=== PATIENT | male | born 1965 | race Caucasian/White ===

== ENCOUNTER 2016-10-09 22:37 | Emergency (ER) | payer SELFPAY ==
[~2016-10-09] VITALS: Ht 177.8 cm; Wt 102.0 kg
[~2016-10-09 22:37] MED LIST: Z.0.NO CURRENT MEDS
[2016-10-09 22:39] VITALS: BP 167/90; PULSE 83; RESP 16; TEMP 97.8; O2SAT 97
[2016-10-09] MEDS ORDERED: SODIUM CHLORIDE 0.9% FLUSH 10 ML FLUSH IV FLUSH PRN (23:15)
[2016-10-09 23:37] LABS: AUTOMATED NEUTROPHIL # 6.7 TH/MM3 (1.8-7.7); BASOPHIL # 0.1 TH/MM3 (0-0.2); EOSINOPHIL # 0.4 TH/MM3 (0-0.4); EOSINOPHIL % 3.8 % (0.0-4.0); HEMATOCRIT 42.7 % (39.0-51.0); HEMO FLAGS DIFF FINAL; LYMPH % 19.1 % (9.0-44.0); LYMPHOCYTE # 1.9 TH/MM3 (1.0-4.8); MEAN CELL VOLUME 88.9 FL (80.0-100.0); MEAN CORPUSCULAR HEMOGLOBIN 30.8 PG (27.0-34.0); MEAN CORPUSCULAR HGB CONC 34.7 % (32.0-36.0); MONO % 7.6 % (0.0-8.0); NEUT % 68.5 % (16.0-70.0); PLATELET COUNT 177 TH/MM3 (150-450); RED CELL DISTRIBUTION WIDTH 13.1 % (11.6-17.2); WHITE BLOOD COUNT 9.7 TH/MM3 (4.0-11.0)
[2016-10-09 23:58] LABS: ALKALINE PHOSPHATASE 57 U/L (45-117); ALT (GPT) 35 U/L (12-78); ANION GAP 7 MEQ/L (5-15); AST (GOT) 21 U/L (15-37); BICARBONATE 29.6 MEQ/L (21.0-32.0); BLOOD UREA NITROGEN 13 MG/DL (7-18); CHLORIDE 101 MEQ/L (98-107); GLOMERULAR FILTRATION RATE 70 ML/MIN (>89); SODIUM (NA) 138 MEQ/L (136-145); TOTAL BILIRUBIN ADULT 0.2 MG/DL (0.2-1.0)
[2016-10-10] MEDS ORDERED: BENT20TA PO (00:43)
[2016-10-10] MEDS ORDERED: MIRA33504 PO (00:43)
--- NOTE | 2016-10-10 00:44 | PD ---
HPI Chief Complaint: GI Complaint Time Seen by Provider: 23:05 Travel History International Travel<30 days: No Contact w/Intl Traveler<30days: No Traveled to known affect area: No History of Present Illness HPI This is a 51 year old male who presents to the emergency department with abdominal discomfort. Pt. reports that for one day he has had significant abdominal bloating, constant, moderate severity, associated with constipation. He reports every time he eats he feels bloated. He denies any nausea or vomiting. He reports he took a laxative earlier this week and he had a large bowel movement. He's been having bowel movements every day but he was worried he may have a blockage. He does have a history of diverticulitis and has some chronic left-sided abdominal pain but this is not worse than normal. He usually takes acidophilus but had become somewhat slack in taking this and he thinks that may be contributing to his symptoms. PFSH Past Medical History Hx Anticoagulant Therapy: No Heart Rhythm Problems: No Cardiac Catheterization: No Cardiovascular Problems: No High Cholesterol: No Chemotherapy: No Congestive Heart Failure: No Cerebrovascular Accident: No Diabetes: No Diminished Hearing: No Diverticulitis: Yes Respiratory: No Immunizations Current: Yes Past Surgical History Coronary Artery Bypass Graft: No Social History Alcohol Use: Yes (OCC) Tobacco Use: No Substance Use: Yes (marijuana) Allergies-Medications (Allergen,Severity, Reaction): Coded Allergies: No Known Allergies (Verified , 10/09/16) Reported Meds & Prescriptions Reported Meds & Active Scripts Active No Active Prescriptions or Reported Medications Review of Systems Except as stated in HPI: all other systems reviewed are Neg Physical Exam Narrative GENERAL:Well appearing, no acute distress SKIN: Focused skin assessment warm and dry. HEAD: Atraumatic. Normocephalic. EYES: Pupils equal and round. No injection or drainage. ENT: Moist mucous membranes NECK: Trachea midline. CARDIOVASCULAR: Regular rate and rhythm. No murmur appreciated. RESPIRATORY: Clear to auscultation. Breath sounds equal bilaterally. GASTROINTESTINAL: Abdomen soft, non-tender, nondistended. Bowel sounds in all four quadrants MUSCULOSKELETAL: No obvious deformities. NEUROLOGICAL: Awake and alert. No obvious cranial nerve deficits. Moving all extremities. Data Data Last Documented VS Vital Signs Date Time Temp Pulse Resp B/P Pulse Ox O2 Delivery O2 Flow Rate FiO2 10/09/16 22:39 97.8 83 16 167/90 97 Room Air Orders Complete Blood Count With Diff (10/09/16 23:11) Comprehensive Metabolic Panel (10/09/16 23:11) Lipase (10/09/16 23:11) Iv Access Insert/Monitor (10/09/16 23:11) Ecg Monitoring (10/09/16 23:11) Oximetry (10/09/16 23:11) Sodium Chloride 0.9% Flush (Ns Flush) (10/09/16 23:15) Labs Laboratory Tests Test 10/09/16 23:23 White Blood Count 9.7 TH/MM3 Red Blood Count 4.80 MIL/MM3 Hemoglobin 14.8 GM/DL Hematocrit 42.7 % Mean Corpuscular Volume 88.9 FL Mean Corpuscular Hemoglobin 30.8 PG Mean Corpuscular Hemoglobin 34.7 % Concent Red Cell Distribution Width 13.1 % Platelet Count 177 TH/MM3 Mean Platelet Volume 10.4 FL Neutrophils (%) (Auto) 68.5 % Lymphocytes (%) (Auto) 19.1 % Monocytes (%) (Auto) 7.6 % Eosinophils (%) (Auto) 3.8 % Basophils (%) (Auto) 1.0 % Neutrophils # (Auto) 6.7 TH/MM3 Lymphocytes # (Auto) 1.9 TH/MM3 Monocytes # (Auto) 0.7 TH/MM3 Eosinophils # (Auto) 0.4 TH/MM3 Basophils # (Auto) 0.1 TH/MM3 CBC Comment DIFF FINAL Differential Comment Sodium Level 138 MEQ/L Potassium Level 4.0 MEQ/L Chloride Level 101 MEQ/L Carbon Dioxide Level 29.6 MEQ/L Anion Gap 7 MEQ/L Blood Urea Nitrogen 13 MG/DL Creatinine 1.11 MG/DL Estimat Glomerular Filtration 70 ML/MIN Rate Random Glucose 108 MG/DL Calcium Level 8.8 MG/DL Total Bilirubin 0.2 MG/DL Aspartate Amino Transf 21 U/L (AST/SGOT) Alanine Aminotransferase 35 U/L (ALT/SGPT) Alkaline Phosphatase 57 U/L Total Protein 7.6 GM/DL Albumin 3.9 GM/DL Lipase 135 U/L [facility] Medical Decision Making Medical Screen Exam Complete: Yes Emergency Medical Condition: Yes Interpretation(s) no leukocytosis electrolytes are reassuring lipase is normal Differential Diagnosis Diverticulitis, small bowel obstruction, irritable bowel syndrome, constipation Narrative Course This is a very well-appearing 51-year-old male who presents to the emergency department with abdominal bloating. He was concerned he may have a blockage. He's been having normal bowel movements, no vomiting, and has a benign abdomen which is nontender. Labs are reassuring. I don't think he requires CT imaging. Patient will be discharged on Bentyl, a laxative and was given a referral for a range ecologist. Diagnosis Primary Impression: Abdominal bloating Referrals: Rommel Mancia MD Patient Instructions: General Instructions Additional Instructions: If you develop severe or worsening abdominal pain, fever>100.4, persistent vomiting or inability to eat or drink return to the emergency department immediately. Follow up with your primary care physician in 1-2 days for a check-up. Med/Other Pt SpecificInfo: Prescription(s) given Scripts Polyethylene Glycol 3350 Powder (Miralax Powder)17 Gm Powd17 Gm PO DAILY #1 BOTTLE Ref 0 Mix and dissolve one measuring cap-ful (17 grams) in water or juice. Prov:Amna Otero MD 10/10/16 Dicyclomine (Bentyl)20 Mg Tab20 Mg PO QID PRN (CRAMPS) #20 TAB Prov:Amna Otero MD 10/10/16 Disposition: 01 DISCHARGE HOME Condition: Stable Amna Otero MD Oct 10, 2016 00:44
[2016-10-10 00:51] VITALS: BP 148/77; PULSE 85; RESP 14; RESP 44; O2SAT 98
== END 2016-10-10 01:16 | disposition home or self-care (01) ==
LOC: NEPE 22:37
DX: R14.0 Abdominal distension (gaseous) (principal); K59.00 Constipation, unspecified
CPT/HCPCS: 80053; 83690; 85025; 99284

== ENCOUNTER 2017-11-12 04:23 | Emergency (ER) | payer SELFPAY ==
[~2017-11-12] VITALS: Ht 177.8 cm; Wt 102.0 kg
[~2017-11-12 04:23] MED LIST changes: +CIPR-9 PO; +TAMS5CAP PO; -Z.0.NO CURRENT MEDS
[2017-11-12 04:39] VITALS: BP 169/95; PULSE 74; RESP 16; TEMP 97.8; O2SAT 98
[2017-11-12] MEDS ORDERED: SODIUM CHLORIDE 0.9% FLUSH 10 ML FLUSH IV FLUSH PRN (04:45)
[2017-11-12] MEDS ORDERED: DICL50TA PO (04:54)
[2017-11-12] MEDS ORDERED: BACL10TA PO (04:54)
--- NOTE | 2017-11-12 04:55 | PD ---
HPI Chief Complaint: Flank/Kidney Pain Time Seen by Provider: 04:45 Travel History International Travel<30 days: No Contact w/Intl Traveler<30days: No Traveled to known affect area: No History of Present Illness HPI 52-year-old male complains of pain in the left back. He has had it for 3 days. He notes it is difficult to sleep because of the pain. It is constant. He reports a dull quality to it. Stretching and hot showers seem to help. He reports Motrin was temporarily helpful. He has had no bloody urine. No nausea vomiting fever. He reports similar episodes in the past have come and gone, none has been as severe. Pain does not radiate. He states he is mainly worried about kidney disease. PFSH Past Medical History Hx Anticoagulant Therapy: No Heart Rhythm Problems: No Cardiac Catheterization: No Cardiovascular Problems: No High Cholesterol: No Chemotherapy: No Congestive Heart Failure: No Cerebrovascular Accident: No Diabetes: No Diminished Hearing: No Diverticulitis: Yes Respiratory: No Immunizations Current: Yes Past Surgical History Coronary Artery Bypass Graft: No Social History Alcohol Use: Yes (OCC) Tobacco Use: No Substance Use: Yes (marijuana) Allergies-Medications (Allergen,Severity, Reaction): Coded Allergies: No Known Allergies (Verified Allergy, Unknown, 11/12/17) Reported Meds & Prescriptions Reported Meds & Active Scripts Active Baclofen 10 Mg Tab 10 Mg PO Q8HR Diclofenac Potassium 50 Mg Tab 50 Mg PO TID Review of Systems Except as stated in HPI: all other systems reviewed are Neg General / Constitutional: No: Fever Physical Exam Narrative GENERAL: 52-year-old male well-nourished well-developed no acute distress Vital Signs Date Time Temp Pulse Resp B/P (MAP) Pulse Ox O2 Delivery O2 Flow Rate FiO2 11/12/17 04:39 97.8 74 16 169/95 (119) 98 SKIN: Warm and dry. HEAD: Atraumatic. Normocephalic. EYES: Pupils equal and round. No scleral icterus. No injection or drainage. ENT: No nasal bleeding or discharge. Mucous membranes pink and moist. NECK: Trachea midline. No JVD. CARDIOVASCULAR: Regular rate and rhythm. RESPIRATORY: No accessory muscle use. Clear to auscultation. Breath sounds equal bilaterally. GASTROINTESTINAL: There is no significant tenderness to palpation/percussion. Along the flank distribution on the left side. MUSCULOSKELETAL: Extremities without clubbing, cyanosis, or edema. No obvious deformities. NEUROLOGICAL: Awake and alert. No obvious cranial nerve deficits. Motor grossly within normal limits. Five out of 5 muscle strength in the arms and legs. Normal speech. PSYCHIATRIC: Appropriate mood and affect; insight and judgment normal. Data Data Last Documented VS Vital Signs Date Time Temp Pulse Resp B/P (MAP) Pulse Ox O2 Delivery O2 Flow Rate FiO2 11/12/17 04:39 97.8 74 16 169/95 (119) 98 Orders Orders Basic Metabolic Panel (Bmp) (11/12/17 04:45) Complete Blood Count With Diff (11/12/17 04:45) Urinalysis - C+S If Indicated (11/12/17 04:45) Ct Abd/Pel W/O Iv Contrast (11/12/17 04:45) Iv Access Insert/Monitor (11/12/17 04:45) Ecg Monitoring (11/12/17 04:45) Oximetry (11/12/17 04:45) Sodium Chloride 0.9% Flush (Ns Flush) (11/12/17 04:45) Ed Discharge Order (11/12/17 05:37) Labs Laboratory Tests Test 11/12/17 04:49 11/12/17 05:00 White Blood Count 8.2 TH/MM3 Red Blood Count 5.01 MIL/MM3 Hemoglobin 15.8 GM/DL Hematocrit 45.9 % Mean Corpuscular Volume 91.6 FL Mean Corpuscular Hemoglobin 31.5 PG Mean Corpuscular Hemoglobin Concent 34.4 % Red Cell Distribution Width 12.8 % Platelet Count 166 TH/MM3 Mean Platelet Volume 10.0 FL Neutrophils (%) (Auto) 58.5 % Lymphocytes (%) (Auto) 28.8 % Monocytes (%) (Auto) 8.3 % Eosinophils (%) (Auto) 3.7 % Basophils (%) (Auto) 0.7 % Neutrophils # (Auto) 4.8 TH/MM3 Lymphocytes # (Auto) 2.4 TH/MM3 Monocytes # (Auto) 0.7 TH/MM3 Eosinophils # (Auto) 0.3 TH/MM3 Basophils # (Auto) 0.1 TH/MM3 CBC Comment DIFF FINAL Differential Comment Blood Urea Nitrogen 13 MG/DL Creatinine 1.10 MG/DL Random Glucose 110 MG/DL Calcium Level 8.9 MG/DL Sodium Level 139 MEQ/L Potassium Level 4.3 MEQ/L Chloride Level 104 MEQ/L Carbon Dioxide Level 25.9 MEQ/L Anion Gap 9 MEQ/L Estimat Glomerular Filtration Rate 70 ML/MIN Urine Color YELLOW Urine Turbidity CLEAR Urine pH 5.5 Urine Specific Hundred 1.025 Urine Protein TRACE mg/dL Urine Glucose (UA) NEG mg/dL Urine Ketones NEG mg/dL Urine Occult Blood NEG Urine Nitrite NEG Urine Bilirubin NEG Urine Urobilinogen LESS THAN 2.0 MG/DL Urine Leukocyte Esterase NEG Urine WBC LESS THAN 1 /hpf Urine Mucus FEW /lpf Microscopic Urinalysis Comment CULT NOT INDICATED MDM Medical Decision Making Medical Screen Exam Complete: Yes Emergency Medical Condition: Yes Medical Record Reviewed: Yes Differential Diagnosis renal stones, hydro, pyelonephritis, myofascial strain Narrative Course CT ab/pel: L renal cyst present, no renal stone, no hydronephrosis Urine shows no hematuria or proteinuria CBC & BMP Diagram 11/12/17 04:49 Calcium Level 8.9 Last Impressions Abdomen/Pelvis CT 11/12/17 0445 Signed Impressions: Service Date/Time: Tuesday, November 12, 2017 04:52 - CONCLUSION: 1. Simple cyst in left kidney with no renal calculi or obstruction. 2. Unremarkable gallbladder. 3. No visualized etiology to explain the patient's pain. Sundeep Palacios MD The patient is resting comfortably and feels better, is alert and in no distress. The patients results and examination findings were discussed. The repeat examination is unremarkable and benign. The history, exam, diagnostic testing, and current condition do not suggest any significant pathology to warrant further testing, continued ED treatment, admission, or surgical evaluation at this point. The vital signs have been stable. The patient does not have uncontrollable pain, intractable vomiting, or other significant symptoms. The patient's condition is stable and appropriate for discharge. The patient will pursue further outpatient evaluation with a primary care physician or other designated or consulting physician as indicated in the discharge instructions. The patient expressed understanding and was agreeable with this plan. Diagnosis Primary Impression: Renal cyst Referrals: Primary Care Physician call for appointment Med/Other Pt SpecificInfo: Prescription(s) given Scripts Baclofen (Baclofen) 10 Mg Tab 10 MG PO Q8HR, #20 TAB 0 Refills Prov: Meet Bruno MD 11/12/17 Diclofenac Potassium (Diclofenac Potassium) 50 Mg Tab 50 MG PO TID, #30 TAB 0 Refills Prov: Meet Bruno MD 11/12/17 Disposition: 01 DISCHARGE HOME Condition: Stable Meet Bruno MD November 12, 2017 04:54
[2017-11-12 05:10] LABS: AUTOMATED NEUTROPHIL # 4.8 TH/MM3 (1.8-7.7); BASOPHIL # 0.1 TH/MM3 (0-0.2); BASOPHIL % 0.7 % (0.0-2.0); EOSINOPHIL # 0.3 TH/MM3 (0-0.4); EOSINOPHIL % 3.7 % (0.0-4.0); HEMATOCRIT 45.9 % (39.0-51.0); HEMOGLOBIN 15.8 GM/DL (13.0-17.0); LYMPH % 28.8 % (9.0-44.0); LYMPHOCYTE # 2.4 TH/MM3 (1.0-4.8); MEAN CELL VOLUME 91.6 FL (80.0-100.0); MEAN CORPUSCULAR HEMOGLOBIN 31.5 PG (27.0-34.0); MEAN CORPUSCULAR HGB CONC 34.4 % (32.0-36.0); MONO % 8.3 % (0.0-8.0); MONOCYTE # 0.7 TH/MM3 (0-0.9); NEUT % 58.5 % (16.0-70.0); PLATELET COUNT 166 TH/MM3 (150-450); RED BLOOD COUNT 5.01 MIL/MM3 (4.50-5.90); RED CELL DISTRIBUTION WIDTH 12.8 % (11.6-17.2); WHITE BLOOD COUNT 8.2 TH/MM3 (4.0-11.0)
--- NOTE | 2017-11-12 05:14 | RADRPT ---
EXAM DATE/TIME: 11/12/2017 04:52 [facility] COMPARISON: No previous studies available for comparison. INDICATIONS : Left flank pain ORAL CONTRAST: No oral contrast ingested. RADIATION DOSE: 12.78 CTDIvol (mGy) MEDICAL HISTORY : None SURGICAL HISTORY : None. ENCOUNTER: Initial ACUITY: 1 day PAIN SCALE: 5/10 LOCATION: Left flank TECHNIQUE: Volumetric scanning of the abdomen and pelvis was performed. Using automated exposure control and ad justment of the mA and/or kV according to patient size, radiation dose was kept as low as reasonably achievable to obtain optimal diagnostic quality images. DICOM format image data is available electro nically for review and comparison. FINDINGS: LOWER LUNGS: The visualized lower lungs are clear. LIVER: Homogeneous density without lesion. There is no dilation of the biliary tree. No calcified gallston es. The gallbladder is unremarkable. SPLEEN: Normal size without lesion. PANCREAS: Within normal limits. KIDNEYS: Normal in size and shape. There is no solid mass, stone, or hydronephrosis. There is a simple cyst e xtending off the mid left kidney. ADRENAL GLANDS: Within normal limits. VASCULAR: There is no aortic aneurysm. BOWEL/MESENTERY: The stomach, small bowel, and colon demonstrate no acute abnormality. There is no free intraperitone al air or fluid. ABDOMINAL WALL: Within normal limits. RETROPERITONEUM: There is no lymphadenopathy. BLADDER: No wall thickening or mass. REPRODUCTIVE: Within normal limits. INGUINAL: There is no lymphadenopathy or hernia. MUSCULOSKELETAL: Within normal limits for patient age. CONCLUSION: 1. Simple cyst in left kidney with no renal calculi or obstruction. 2. Unremarkable gallbladder. 3. No visualized etiology to explain the patient's pain. Sundeep Palacios MD on November 12, 2017 at 5:09 Board Certified Radiologist. This report was verified electronically.
[2017-11-12 05:15] LABS: BILIRUBIN, URINE NEG (NEG); BLOOD, URINE NEG (NEG); GLUCOSE,URINE NEG (NEG); KETONE, URINE NEG (NEG); MUCUS URINE FEW /lpf (OCC); NITRITE,URINE NEG (NEG); PH, URINE 5.5 (5.0-8.5); URINE COLOR YELLOW (YELLW/STRAW); URINE LEUKOCYTE ESTERASE NEG (NEG)
[2017-11-12 05:34] LABS: BICARBONATE 25.9 MEQ/L (21.0-32.0); CALCIUM 8.9 MG/DL (8.5-10.1); CREATININE 1.1 MG/DL (0.60-1.30)
[2017-11-12 06:06] VITALS: O2SAT 98
== END 2017-11-12 06:07 | disposition home or self-care (01) ==
LOC: NEPC 04:23
DX: N28.1 Cyst of kidney, acquired (principal); F12.90 Cannabis use, unspecified, uncomplicated
CPT/HCPCS: 74176; 80048; 81001; 85025